=== PATIENT | male | born 1960 | race Two or more races ===

== ENCOUNTER 2017-08-31 11:09 | Emergency (ER) | payer MEDICAID, OTHER ==
[~2017-08-31] VITALS: Ht 180.3 cm; Wt 117.0 kg
[2017-08-31 11:40] VITALS: BP 146/106
[2017-08-31] MEDS ORDERED: KETOROLAC TROMETH 60MG/2ML VIAL IM ONE (13:15)
[2017-08-31] MEDS ORDERED: HYDROcodone-ACET 10/325MG TAB PO ONE (13:15)
== END 2017-08-31 13:26 | disposition home or self-care (01) ==
LOC: ER 11:21
DX: S22.42XA Multiple fractures of ribs, left side, initial encounter for closed fracture (principal); I10 Essential (primary) hypertension; Z90.49 Acquired absence of other specified parts of digestive tract; W01.0XXA Fall on same level from slipping, tripping and stumbling without subsequent striking against object, initial encounter; Y93.E9 Activity, other interior property and clothing maintenance; Y92.89 Other specified places as the place of occurrence of the external cause; Y99.8 Other external cause status
CPT/HCPCS: 71101; 93005; 96372; 99284; J1885